=== PATIENT | male | born 1970 | race Caucasian/White ===

== ENCOUNTER 2020-08-23 13:46 | Outpatient (CLI) | payer OTHER, SELFPAY ==
--- NOTE | ~2020-08-23 | XR_ITS ---
XR shoulder RT min 2V DATE: 08/23/2020 14:11 INDICATION: Right shoulder pain TECHNIQUE: 4 views COMPARISON: 04/06/2013 right shoulder FINDINGS: Status post anterior cervical spine surgical fusion which appears to involve at least C5-C7 . No fracture or dislocation, periosteal reaction or bone destruction or abnormal soft tissue calcifica tion. Normal alignment at the acromioclavicular and glenohumeral joints. IMPRESSION: Negative right shoulder Surgical cervical spine fusion Reviewed, dictated and finalized at location A. IOLOGY PHYSICIAN ASSISTANT
== END 2020-08-23 13:47 | disposition home or self-care (01) ==
LOC: ANHIMG 13:51
PROVIDERS: PCP Physician Assistant; Visit Provider Physician Assistant
DX: M67.911 Unspecified disorder of synovium and tendon, right shoulder (principal); Z98.1 Arthrodesis status
CPT/HCPCS: 73030

== ENCOUNTER → 2020-09-29 07:29 | Outpatient (CLI) | payer OTHER, SELFPAY ==
--- NOTE | ~2020-09-29 | MR_ITS ---
EXAMINATION: MR shoulder RT wo con DATE: 09/29/2020 08:34 INDICATION: Right shoulder pain. TECHNIQUE: Magnetic resonance imaging (MRI) of the right shoulder was performed without intravenous c ontrast. Sequences included axial PD-weighted FS FSE, coronal oblique PD-weighted FS FSE and T2-weigh jayme FS FSE, and sagittal oblique T2-weighted FS FSE and T1-weighted FSE. COMPARISON: Right shoulder radiographs 08/23/2020 FINDINGS: Coracoacromial arch: The acromion undersurface is curved in morphology (type II). Distal clavicle demonstrates subchondral low signal fracture lines and bone marrow edema. There is mild acromioclavicular joint osteoarthriti s. There is edema around the acromioclavicular joint. There is mild subacromial/subdeltoid bursitis. Rotator cuff: There is mild supraspinatus and infraspinatus tendinopathy. Teres minor tendon is normal. There is mi ld subscapularis tendinopathy. No tear. There is no asymmetric fatty atrophy of the rotator cuff musc le bellies. Biceps tendon and glenoid labrum: Biceps tendon is in bicipital groove. Intra-articular biceps tendon is normal. There is a tear of sup erior labrum from 11:00 to 12:00 (SLAP tear). Fluid: There is no glenohumeral joint effusion. Bones/cartilage: Glenoid cartilage is normal. Humeral head cartilage is normal. IMPRESSION: 1. Nondisplaced subchondral fracture of distal clavicle. 2. Mild rotator cuff tendinopathy. No tear. 3. SLAP tear. 4. Mild subacromial/subdeltoid bursitis. Reviewed, dictated and finalized at location A. S AND IN HOME DELIVERY SPECIALIST
== END ==
PROVIDERS: Visit Provider Orthopaedic Surgery
DX: M25.511 Pain in right shoulder (principal); S43.431A Superior glenoid labrum lesion of right shoulder, initial encounter; X58.XXXA Exposure to other specified factors, initial encounter
CPT/HCPCS: 73221

== ENCOUNTER → 2021-04-25 16:31 | Outpatient (CLI) | payer BC, SELFPAY ==
--- NOTE | ~2021-04-25 | XR_ITS ---
EXAMINATION: XR lumbar spine min 4V DATE: 04/25/2021 16:50 INDICATION: Low back pain. TECHNIQUE: 5 views of lumbar spine were obtained. COMPARISON: CT abdomen and pelvis 05/23/2012 FINDINGS: There is 5 degrees dextrocurvature of lumbar spine. There is 3 mm retrolisthesis of L3 on L 4. Vertebral body heights are normal. L4 is a limbus vertebra. Intervertebral disc heights are normal . There is multilevel mild facet joint osteoarthritis. IMPRESSION: 1. Mild lumbar spondylosis. Reviewed, dictated and finalized at location A. IMPRESSION: 1. Mild lumbar spondylosis.
== END ==
PROVIDERS: PCP Family Medicine; Visit Provider Family Medicine
DX: M47.896 Other spondylosis, lumbar region (principal)
CPT/HCPCS: 72110

== ENCOUNTER 2021-07-21 08:26 | Outpatient (CLI) | payer BC, SELFPAY ==
--- NOTE | 2021-07-21 08:48 | ECHO_ITS ---
Patient Info Name: Maciel Levine Age: 51 years : 1970 Gender: Male Ht: 68 in Wt: 168 lbs BSA: 1.92 m2 HR: 66 bpm BP: 147 / 93 mmHg Technical Quality: Good Exam Date: 07/21/2021 8:52 AM Exam Location: [facility] Patient Status: Outpatient Admit Date: 07/21/2021 Staff Ordering Physician: Placido Vincent MD Surgery Aid: Glo Tom RDCS Attending Provider: Placido Vincent MD Exam Type: CA echo doppler color flow Study Info Indications R53.83 - Other fatigue Complete two-dimensional, color flow and Doppler transthoracic echocardiogram is performed. Summary 1. Complete two-dimensional, color flow and Doppler transthoracic echocardiogram is performed. 2. Left ventricular chamber dimension is normal. 3. Left ventricular systolic function is normal, estimated at 55-60%. 4. The left ventricular diastolic function is normal. 5. E/e' 8 is minimally elevated. 6. Global longitudinal strain is slightly abnormal at -16.6%. 7. There is mild aortic valve sclerosis. 8. No pulmonary hypertension, estimated pulmonary arterial systolic pressure is 19 mmHg. Left Ventricle E/e' 8 is minimally elevated. Global longitudinal strain is slightly abnormal at -16.6%. Left ventricular chamber dimension is normal. Left ventricular systolic function is normal, estimated at 55-60%. The left ventricular diastolic function is normal. Right Ventricle Right ventricular chamber dimension is normal. Right ventricular systolic function is normal. Left Atria Left atrial chamber dimension is normal. Right Atria Right atrial chamber dimension is normal. Aortic Valve The aortic valve is trileaflet. There is mild aortic valve sclerosis. There is no aortic valve stenosis. There is no aortic valve regurgitation. Pulmonic Valve There is no pulmonic regurgitation. Mitral Valve There is no mitral valve stenosis. There is no mitral valve regurgitation. Tricuspid Valve There is no tricuspid valve regurgitation. No pulmonary hypertension, estimated pulmonary arterial systolic pressure is 19 mmHg. Pericardium/Pleural There is no pericardial effusion. Inferior Vena Cava Normal inferior vena cava with >50% collapse upon inspiration consistent with normal right atrial pressure, 5 mmHg. Aorta The aortic root size at the sinus of Valsalva is normal. Left Ventricular Outflow Tract Name Value Normal LVOT 2D LVOT Diameter 2.0 cm LVOT Doppler LVOT Peak Gradient 3 mmHg LVOT Mean Gradient 2 mmHg LVOT VTI 17 cm LVOT VTI/AV VTI Ratio 0.7 LVOT Stroke Volume 54 ml LVOT CO 3.3 l/min LVOT CI 1.7 l/min/m2 Pulmonic Valve Name Value Normal RVOT Doppler
== END 2021-07-21 08:27 | disposition home or self-care (01) ==
LOC: ANHCARD 08:27
PROVIDERS: PCP Family Medicine; Visit Provider Internal Medicine
DX: M06.00 Rheumatoid arthritis without rheumatoid factor, unspecified site (principal); R53.83 Other fatigue; R76.8 Other specified abnormal immunological findings in serum
CPT/HCPCS: 93306

== ENCOUNTER 2021-07-21 08:30 | Outpatient (CLI) | payer BC, SELFPAY ==
[2021-07-21 08:55] LABS: Anion Gap 6 mmol/L (8-16); Blood Urea Nitrogen 19 mg/dL (9-20); Calcium 10.1 mg/dL (8.4-10.2); Carbon Dioxide 32 mmol/L (22-30); Chloride 102 mmol/L (98-107); Estimated Glomerular Filt Rate > 60; Glucose 103 mg/dL (65-110); Potassium 4.5 mmol/L (3.4-5.0); Sodium 140 mmol/L (137-145)
== END 2021-07-21 08:31 | disposition home or self-care (01) ==
LOC: ANHLAB 08:32
PROVIDERS: PCP Family Medicine; Visit Provider Family Medicine
DX: E87.5 Hyperkalemia (principal)
CPT/HCPCS: 36415; 80048

== ENCOUNTER 2023-04-05 00:08 | Day surgery (SDC) | payer BC, SELFPAY ==
[2023-03-25 14:56] VITALS: BMI 26.1
--- NOTE | 2023-04-05 07:33 | WPDANESEPPF ---
Anes - Initial Pre Proc Eval Procedure: Operation Date: 04/05/23 08:30 Proposed Procedures p Colonoscopy - Juan Carlos Mcdonough MD Date/Time: 04/05/23 07:33 Surgeon: Juan Carlos Mcdonough MD Pre Op Diagnosis: family hx colon ca Patient Data Age: 53 Gender: M Height: 1.73 m Weight: 78 kg Allergies Allergy/AdvReac Type Severity Reaction Status Date / Time clarithromycin Allergy Unknown Unknown Verified 04/05/23 07:39 Penicillins Allergy Unknown Swelling Verified 04/05/23 07:39 Home Medications Medication Instructions Recorded Confirmed Type omega 7-dze-lid-fish oil 1,600 5 ml PO DAILY 09/23/19 04/05/23 History mg-500 mg-800 mg/5 mL oral liquid (Fish Oil) Bacillus coagulans 10 billion cell 1 cell PO DAILY 02/18/20 04/05/23 History capsule,delayed release (Probiotic (B. coagulans)) ketoconazole 2 % topical cream 1 applic topical DAILY PRN Rash 02/18/20 04/05/23 History testosterone cypionate 100 mg/mL 50 mg IM ONCE 07/19/20 04/05/23 History intramuscular oil cholecalciferol (vitamin D3) 125 125 mcg PO 3XW 12/27/21 04/05/23 History mcg (5,000 unit) capsule levothyroxine 75 mcg tablet See Rx Instructions .Route 10/02/22 03/25/23 Rx .COMPLEX #90 tabs rosuvastatin 40 mg tablet (Crestor) 40 mg PO DAILY #90 tabs 02/01/23 04/05/23 Rx Patient hx anesthesia problems: none Family hx anesthesia problems: none Results Review: All pre-operative results and documents have been reviewed as part of the pre-operative evaluation. [facility]LY [facility] Past Medical History Medical History Centromere antibody positive Dyslipidemia Frozen shoulder GEORGE (generalized anxiety disorder) Hypercholesterolemia Hypogonadism in male Hypothyroidism (acquired) Insomnia Mixed hyperlipidemia Pneumonitis 11/03/15 Ruptured disk around age 35 and 38 Vitamin D deficiency (~10/2018) Surgical History Surgical History History of appendectomy 05/23/2012 History of neck surgery 2007 and 2002 cervical fusion Family History Family History (Updated 07/16/22 @ 16:03 by Bria Springer PA-C) Mother Hypertension Father Colon cancer, Onset Age: 79 Heart disease Social History Social History (Updated 07/16/22 @ 15:53 by Bria Springer PA-C) Smoking status: Never smoker Second hand tobacco smoke exposure: No Alcohol intake: current Drinks per week: 7 Alcohol use details: consumes 1 glass of wine daily Substance use: current Substance use type: does not use Lack of Transportation: No Lack of Food: Never True Current Housing: I Have Housing Concerned About Future Housing: No Difficulty Paying Gas/Electric Bills: No Difficulty Paying for Meds: No Currently Unemployed: No Education: Bachelor's Degree Difficulty w/ Childcare or Family Care: No Living arrangements: with family Occupation/Education: occupation 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 Informed Consent: The patient's anesthetic plan and its attendant risks and benefits were discussed with the patient/family/POA. Questions were solicited and answers provided to the satisfaction of the patient/family/POA.
[2023-04-05 07:40] VITALS: BP 124/95; PULSE 78; RESP 20; O2SAT 99
[2023-04-05 07:41] VITALS: BMI 25.2
[2023-04-05] MEDS: LACTATED RINGERS 1,000 ML 150 ML IV CONT (07:53)
--- NOTE | 2023-04-05 08:09 | PM.HPGS ---
History of Present Illness History of Present Illness Consent: Risks, benefits, and alternatives have been discussed and questions answered. Patient agrees to proceed with procedure. Chief complaint: family hx colon ca Narrative: Maciel Levine is a 53 year old male with last colonoscopy 2017, father had colon cancer Review of Systems Constitutional: Constitutional: Denies headache(s) and Denies weakness Eyes: Eyes: Denies blurry vision ENT: Reports Normal hearing present, Denies headache(s) and Denies neck pain Cardiovascular: Cardiovascular: Denies chest pain and Denies dyspnea Respiratory: Respiratory: Denies dyspnea Gastrointestinal: Gastrointestinal: Reports no additional gastrointestinal complaints Genitourinary: Genitourinary: Denies dysuria Musculoskeletal: Musculoskeletal: Denies neck pain Integumentary/Breasts: Skin/Breast: Denies dry skin Neurologic: Reports Normal hearing present, Denies headache(s) and Denies weakness Psychiatric: Psychiatric: Denies anxiety Endocrine: Endocrine: Denies change in body appearance Hematologic/Lymphatic: Hematologic/Lymphatic: Denies easy bleeding Allergic/Immunologic: Allergic/Immunologic: Denies urticaria PMFSH Past Medical History Medical History (Updated 04/05/23 @ 08:10 by Juan Carlos Mcdonough MD) Centromere antibody positive Dyslipidemia Family history of colon cancer in father Frozen shoulder GEORGE (generalized anxiety disorder) Hypercholesterolemia Hypogonadism in male Hypothyroidism (acquired) Insomnia Mixed hyperlipidemia Pneumonitis 11/03/15 Ruptured disk around age 35 and 38 Vitamin D deficiency (~10/2018) Surgical History Surgical History History of appendectomy 05/23/2012 History of neck surgery 2007 and 2002 cervical fusion Family History Family History (Updated 07/16/22 @ 16:03 by Bria Springer PA-C) Mother Hypertension Father Colon cancer, Onset Age: 79 Heart disease Social History Social History (Updated 07/16/22 @ 15:53 by Bria Springer PA-C) Smoking status: Never smoker Second hand tobacco smoke exposure: No Alcohol intake: current Drinks per week: 7 Alcohol use details: consumes 1 glass of wine daily Substance use: current Substance use type: does not use Lack of Transportation: No Lack of Food: Never True Current Housing: I Have Housing Concerned About Future Housing: No Difficulty Paying Gas/Electric Bills: No Difficulty Paying for Meds: No Currently Unemployed: No Education: Bachelor's Degree Difficulty w/ Childcare or Family Care: No Living arrangements: with family Occupation/Education: occupation 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 coagulans)) ketoconazole 2 % topical cream 1 applic topical DAILY PRN Rash 02/18/20 04/05/23 History testosterone cypionate 100 mg/mL 50 mg IM ONCE 07/19/20 04/05/23 History intramuscular oil cholecalciferol (vitamin D3) 125 125 mcg PO 3XW 12/27/21 04/05/23 History mcg (5,000 unit) capsule levothyroxine 75 mcg tablet See Rx Instructions .Route 10/02/22 03/25/23 Rx .COMPLEX #90 tabs rosuvastatin 40 mg tablet (Crestor) 40 mg PO DAILY #90 tabs 02/01/23 04/05/23 Rx Allergies Allergy/AdvReac Type Severity Reaction Status Date / Time clarithromycin Allergy Unknown Unknown Verified 04/05/23 07:39 Penicillins Allergy Unknown Swelling Verified 04/05/23 07:39 Exam Const: General: comf
[2023-04-05 08:29] VITALS: BP 106/62; PULSE 64; RESP 19; O2SAT 96
[2023-04-05 08:39] VITALS: BP 119/75; PULSE 69; RESP 22; O2SAT 98
[2023-04-05 08:49] VITALS: BP 111/78; PULSE 62; RESP 21; O2SAT 97
== END 2023-04-05 08:57 | disposition home or self-care (01) ==
PROVIDERS: PCP Family Medicine; Visit Provider Internal Medicine Gastroenterology
PROC: 0DJD8ZZ Inspection of Lower Intestinal Tract, Via Natural or Artificial Opening Endoscopic (ICD-10-PCS; CPT 45378; principal; 2023-04-05 08:30)
DX: Z12.11 Encounter for screening for malignant neoplasm of colon (principal); D12.0 Benign neoplasm of cecum; D12.4 Benign neoplasm of descending colon; K64.8 Other hemorrhoids; Z80.0 Family history of malignant neoplasm of digestive organs; E78.00 Pure hypercholesterolemia, unspecified; F41.1 Generalized anxiety disorder; E55.9 Vitamin D deficiency, unspecified; Z98.1 Arthrodesis status
CPT/HCPCS: 45380; 45385; 88305; J2704; J7120